=== PATIENT | male | born 1960 | race Caucasian/White ===

== ENCOUNTER 2018-04-28 08:25 | Outpatient (CLI) | payer MEDICAID, SELFPAY ==
[2018-04-28 10:32] LABS: ALT 27 U/L (12-78); AST 17 U/L (15-37); Albumin 4.3 g/dL (3.4-5.0); Alkaline Phosphatase 79 U/L (46-116); Anion Gap 10.6 mmol/L (3-11); BUN 21 mg/dL (7-18); CO2 27.4 mmol/L (21.0-32.0); CREATININE 1.11 mg/dL (0.70-1.30); Calcium 9.4 mg/dL (8.5-10.1); Chloride 103 mmol/L (98-107); Cholesterol 205 mg/dL (50-200); Glucose 104 mg/dL (70-100); HDL Cholesterol 37 mg/dL (40-60); LDL CHOLESTEROL 139 mg/dL (<100); Potassium 4.7 mmol/L (3.5-5.1); Sodium 141 mmol/L (136-145); Total Protein 7.9 g/dL (6.4-8.2); Triglyceride 117 mg/dL (30-150)
== END 2018-04-28 08:45 ==
PROVIDERS: PCP Family Medicine; Visit Provider Family Medicine
DX: E78.00 Pure hypercholesterolemia, unspecified (principal); I10 Essential (primary) hypertension
CPT/HCPCS: 36415; 80053; 80061; 83721

== ENCOUNTER 2019-01-16 20:03 | Outpatient (REF) | payer MEDICAID, SELFPAY | END 2019-01-16 20:23 | LOC: LBN 20:03 | PROVIDERS: PCP Family Medicine; Visit Provider Family Medicine | DX: B08.4 Enteroviral vesicular stomatitis with exanthem (principal) | CPT/HCPCS: 87070; 87205 ==

== ENCOUNTER 2019-11-01 09:21 | Outpatient (CLI) | payer MEDICAID, SELFPAY ==
[2019-11-01 12:41] LABS: ALT 34 U/L (16-63); AST 21 U/L (15-37); Albumin 4.7 g/dL (3.4-5.0); Alkaline Phosphatase 91 U/L (46-116); Anion Gap 12.1 mmol/L (3-11); BUN 20 mg/dL (7-18); Bilirubin, Total 1.2 mg/dL (0.2-1.0); CO2 24.9 mmol/L (21.0-32.0); CREATININE 0.97 mg/dL (0.70-1.30); Calcium 9.6 mg/dL (8.5-10.1); Calculated LDL 145 mg/dL (<100); Chloride 102 mmol/L (98-107); Cholesterol 202 mg/dL (<200); Glucose 99 mg/dL (74-106); HDL Cholesterol 38 mg/dL (40-60); Potassium 4.4 mmol/L (3.5-5.1); Sodium 139 mmol/L (136-145); Total Protein 7.9 g/dL (6.4-8.2); Triglyceride 98 mg/dL (<150)
== END 2019-11-01 09:41 ==
PROVIDERS: PCP Family Medicine; Visit Provider Family Medicine
DX: E78.5 Hyperlipidemia, unspecified (principal); I10 Essential (primary) hypertension
CPT/HCPCS: 36415; 80053; 80061

== ENCOUNTER 2020-11-11 10:21 | Outpatient (CLI) | payer MEDICAID, SELFPAY ==
[2020-11-11 12:53] LABS: ALT 29 U/L (16-63); AST 20 U/L (15-37); Albumin 4.4 g/dL (3.4-5.0); Alkaline Phosphatase 102 U/L (46-116); Anion Gap 12.8 mmol/L (3-11); BUN 15 mg/dL (7-18); Bilirubin, Total 1.4 mg/dL (0.2-1.0); CO2 24.2 mmol/L (21.0-32.0); Calcium 9.8 mg/dL (8.5-10.1); Calculated LDL 94 mg/dL (<100); Chloride 106 mmol/L (98-107); Cholesterol 144 mg/dL (<200); Glucose 93 mg/dL (74-106); HDL Cholesterol 36 mg/dL (40-60); Potassium 4.5 mmol/L (3.5-5.1); Sodium 143 mmol/L (136-145); Total Protein 7.7 g/dL (6.4-8.2); Triglyceride 72 mg/dL (<150)
== END 2020-11-11 10:22 | disposition home or self-care (01) ==
LOC: LOS 10:22
PROVIDERS: PCP Family Medicine; Visit Provider Family Medicine
DX: E78.00 Pure hypercholesterolemia, unspecified (principal)
CPT/HCPCS: 36415; 80053; 80061

== ENCOUNTER 2022-02-20 02:06 | Outpatient (CLI) | payer MEDICAID, SELFPAY ==
--- OUTSIDE RECORDS SUMMARY | 2022-02-20 02:13 | XMS_ITS | Encounter Summary ---
:1960 Author Organization [facility] Address [address] [place] [id number] Care Team Providers Name Role Phone Unknown, Provider Primary Care Provider Encounter Details Date Type Department Care Team Description 07/28/2010 Results Only [facility] Dorina Ashford MD Services - [address] [address] Social History Tobacco Use Types Packs/Day Years Used Date Smoking Tobacco: Never Assessed Sex Assigned at Date Recorded Not on file documented as of this encounter Plan of Treatment Not on filedocumented as of this encounter Procedures Procedure Name Priority Date/Time Associated Diagnosis Comme nts SURGICAL PATHOLOGY Routine 07/28/2010 0:00 EDT Re sults for this procedure are i n the results section. documented in this encounter Results SURGICAL PATHOLOGY (07/28/2010 0:00 EDT) Component Value Ref Test Analysis Performed At [facility] Method Time Signature Pathology SURGICAL PATHOLOGY REPORT ? ALFREDO HER Report: Reports generated via [employer] [place] interface contain original data; ? MEÑO HENRIQUEZ however they are lacking the format of the original report. ? Caution should be taken when reading/interpreting unformatted reports. ? Name: ? BURRINGTON, LUCITA LAS ? Accession #: ? [id number] ? : ? 1960 (Age: 50) ??M ? Collec t Date: ? 07/28/2010 ? Location: ? [facility] ? R eceive Date: ? 07/29/2010 ? Provider: MOON ASHFORD MD ? Copy to: ? Final Pathologic Diagnosis: ? Skin of calf, left, p unch biopsy: ? 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 ??See ?microscopic and comment. ? Comment: ? Present within the bi opsy specimen is a mixed inflammatory infiltrate ? within the dermis. ??The inf lammatory infiltrate extends into the deeper aspect ?? of the dermis, although the superficial portion predominates. The infiltrate ? contains numerous eosinophil s, raising an arthropod assault reaction as a ? consideration. ??Alternative ly, an eczematous process is a consideration, albeit, the deeper extent of the inf iltrate is somewhat unusual. ??Fungal organisms are ?? not identified. ??Clinical c orrelation is recommended. (Dr. Serrano)/mpl ? Microscopic Description: ? Sections consist of a punch biopsy of skin. ??There is compacted ? orthokeratosis with parakera tosis overlying an epidermis which shows mild, ? irregular hyperplasia. ??The re is a mild-moderate degree of spongiosis. ??Within ?? the dermis is a superficial to deep, predominantly perivascular, ? lymphomononuclear infiltrate with scattered eosinophils. ??PAS-D stain is ? negative for fungal organism s. ??(Dr. Serrano)/mpl ? Document reviewed and electr onically signed by: ? NOEMY SERRANO MD ? Report ??Date: 08/01/2010 08 :41 ? By the signature above, the attending physician certifies that he/she has ? personally conducted a gross and/or microscopic examination of the described ? specimens and rendered or co nfirmed the above diagnosis. ? Specimen(s) Received: ? 3.0 mm punch Lt calf ? Clinical History: ? Large circular lesion ; multiple satellites; 3.0 mm punch taken of margin; ?? likely fungal ? Gross Description: ? Received in formalin labelled Donnajazmyne, Davy and Lt calf is a ? circular punch biopsy of patel -white skin measuring 0.3 cm in diameter and 0.4 cm in thickness. ??The specimen is submitted intact in a single cassette. ??(A. ? Mackay)/ljn ? End of Report ? Specimen (Source) Anatomical Collection Method Collection Time Re ceived Time Location / / Volume Laterality 07/28/2010 07/29/2010 18:1 5 EDT Moon Ashford MD PATHOLOGY ORDERABLES Performing Organization Address City/State/ZIP Code Phon e Number [facility] [address] [place] [address] SERVICES [facility] [address] [place] [address] documented in this encounter Visit Diagnoses Not on filedocumented in this encounter Care Teams Conversion Developer Relationship Specialty Start Date End Date Unknown, Provider, PCP - General 07/29/10 07/30/10 documented as of this encounter
--- OUTSIDE RECORDS SUMMARY | 2022-02-20 02:13 | XMS_ITS | Encounter Summary ---
:1960 Author Organization [facility] Address [address] [place] [address] Care Team Providers Name Role Phone James Johnson MD Primary Care Provider Unavailable Encounter Details Date Type Department Care Team Description 01/16/2019 Results Only [facility]- Jalen Grayson MD [id number] [facility] [address] [place], [place] [phone] (Wo rk) Social History Tobacco Use Types Packs/Day Years Used Date Smoking Tobacco: Never Assessed Sex Assigned at Date Recorded Not on file documented as of this encounter Plan of Treatment Not on filedocumented as of this encounter Procedures Procedure Name Priority Date/Time Associated Comments Diagnosis ORGANISM IDENTIFICATION Routine 01/16/2019 10:45 Results for this AND SUSCEPTIBILITY EDT procedure are in the results section. documented in this encounter Results ORGANISM IDENTIFICATION AND SUSCEPTIBILITY (01/16/2019 10:45 EDT) Analysis Performed At Patho logist Time Signature Result Bacillus sp. 01/23/2019 [facility] NOT 11:32 EST CENTER [facility] LABORATORY SERVICES Specimen Anatomical Collection Method Collection Time Receive d Time (Source) Location / / Volume Laterality WOUND / Unknown 01/16/2019 10:45 01/21/20 19 EDT 22:25 EDT Comment: Left Arm~BAP GROWTH FROM THIO~A gar plate(s) submitted for interpretation Jalen Matthew MD MICROBIOLOGY - GENERAL ORDER REECE Performing Organization Address City/State/ZIP Code Phon e Number [facility] [address] [place] [address] SERVICES documented in this encounter Visit Diagnoses Not on filedocumented in this encounter Care Teams Ends Down Checker Relationship Specialty Start Date End Date James Johnson MD PCP - General 07/31/10 documented as of this encounter
--- OUTSIDE RECORDS SUMMARY | 2022-02-20 02:13 | XMS_ITS | Clinical Summary ---
:1960 Author Organization [facility] Address [address] [place] [address] Care Team Providers Name Role Phone James Johnson MD Primary Care Provider Unavailable Social History Tobacco Use Types Packs/Day Years Used Date Smoking Tobacco: Never Assessed Sex Assigned at Date Recorded Not on file Plan of Treatment Health Maintenance Due Date Last Done Comments Hepatitis C Screen 1960 COVID-19 Vaccine (#1) 01/13/1961 Insurance Payer Benefit Plan Subscriber ID Effective Phone Address Typ e / Group Dates MEDICAID ACO MEDICAID ACO [id number] 2020-Pres [phone] [address] [place] [address] [place] [address] (Work) Care Teams Mangle Tender Cloth Relationship Specialty Start Date End Date James Johnson MD PCP - General 07/31/10
[2022-02-20 12:56] LABS: CREATININE 1.2 mg/dL (0.70-1.30); Potassium 4.8 mmol/L (3.5-5.1)
== END 2022-02-20 02:07 | disposition home or self-care (01) ==
LOC: LOS 02:06
PROVIDERS: PCP Nurse Practitioner Family; Visit Provider Nurse Practitioner Family
DX: I10 Essential (primary) hypertension (principal)
CPT/HCPCS: 36415; 82565; 84132

== ENCOUNTER 2022-12-17 05:15 | Outpatient (CLI) | payer MEDICAID, SELFPAY ==
[2022-12-17 12:40] LABS: CREATININE 1.1 mg/dL (0.70-1.30); Calculated LDL 127 mg/dL (<100); Cholesterol 194 mg/dL (<200); HDL Cholesterol 40 mg/dL (40-60); Triglyceride 137 mg/dL (<150)
== END 2022-12-17 05:16 | disposition home or self-care (01) ==
LOC: LOS 05:15
PROVIDERS: PCP Nurse Practitioner Family; Visit Provider Nurse Practitioner Family
DX: I10 Essential (primary) hypertension (principal); E78.00 Pure hypercholesterolemia, unspecified
CPT/HCPCS: 36415; 80061; 82565; 84132

== ENCOUNTER 2024-01-12 03:22 | Outpatient (CLI) | payer MEDICAID, SELFPAY ==
[2024-01-12 13:16] LABS: CREATININE 1.2 mg/dL (0.70-1.30); Calculated LDL 124 mg/dL (<100); Cholesterol 202 mg/dL (<200); Estimated GFR 67.95 (mL/min/1.73m2); HDL Cholesterol 38 mg/dL (40-60); Potassium 4.2 mmol/L (3.5-5.1); Triglyceride 204 mg/dL (<150)
== END 2024-01-12 03:23 | disposition home or self-care (01) ==
LOC: LOS 03:22
PROVIDERS: PCP Nurse Practitioner Family; Visit Provider Nurse Practitioner Family
DX: I10 Essential (primary) hypertension (principal); Z13.220 Encounter for screening for lipoid disorders; E78.00 Pure hypercholesterolemia, unspecified
CPT/HCPCS: 36415; 80061; 82565; 84132

== ENCOUNTER 2025-01-03 00:07 | Outpatient (CLI) | payer MEDICAID, SELFPAY ==
[2025-01-03 14:24] LABS: Calculated LDL 134 mg/dL (<100); Cholesterol 200 mg/dL (<200); HDL Cholesterol 41 mg/dL (>or=40); Triglyceride 129 mg/dL (<150)
[2025-01-03 14:59] LABS: Hemoglobin A1C 5.9 % (<5.7)
[2025-01-04 11:07] LABS: PSA, Screening 0.9 ng/mL (<=4.5)
== END 2025-01-03 00:08 | disposition home or self-care (01) ==
LOC: LOS 00:07
PROVIDERS: PCP Nurse Practitioner Family; Visit Provider Nurse Practitioner Family
DX: Z13.220 Encounter for screening for lipoid disorders (principal); Z12.5 Encounter for screening for malignant neoplasm of prostate; Z13.1 Encounter for screening for diabetes mellitus
CPT/HCPCS: 36415; 80061; 84153; 83036